=== PATIENT | female | born 1975 | race Caucasian/White ===

== ENCOUNTER 2022-08-24 11:17 | Emergency (ER) | payer SELFPAY ==
--- OUTSIDE RECORDS SUMMARY | 2022-08-24 11:20 | XMS REPORT | Continuity of Care Document ---
:1975 Author Organization [facility] t Address [address] [place] [address] Dr. Hernandze. [phone] Care Team Providers Name Role Phone PCP, PATIENT DOES NOT HAVE A Primary Care Physician Unavaila YRN Euceda Attending Clinician Yrn Suarez MD Attending Clinician Payers Payer Name Policy Type Policy Number Effective Date Expiration Date S ource Problems This patient has no known problems. Allergies, Adverse Reactions, Alerts Allergy Allergy Status Severity Reaction(s) Onset Inactive Treating Comm ents Source Name Type Date Date Clinician NO KNOWN Drug Active [facility] ALLERGIE [facility] Social History Social Habit Start Date Stop Date Quantity Comments Source Sex Assigned At [birth year] [facility] 00:00:00 00:00:00 [facility] Smoking Status Start Date Stop Date Source Unknown if ever smoked [facility] Medications This patient has no known medications. Procedures This patient has no known procedures. Encounters Start End Encounter Admission Attending Care Care Encounter Source Date/Time Date/Time Type Type Clinicians Facility Department ID 2021-12-20 2021-12-20 Emergency X JEVON PEREZ ERT [id number] [facility] 00:01:00 00:02:00 YRN [facility] 2021-12-20 2021-12-20 Emergency X CHRIS MSCOSME ERT [id number] [facility] 00:01:00 00:02:00 YRN [place] [facility] 2021-12-20 2021-12-20 Emergency [facility] [id number] [facility] 00:01:00 00:02:00 Yrn JEAN [id number] [facility] [id number] [facility] [id number] [place] [id number] Branch Results This patient has no known results.
[2022-08-24] MEDS ORDERED: HYDROCODONE/APAP 10/325 TAB ONE (12:48)
[2022-08-24] MEDS ORDERED: IBUPROFEN 400 MG TAB ONE (12:49)
--- NOTE | 2022-08-24 13:39 | RAD REPORT ---
EXAM DESCRIPTION: RAD - Knee Right 3 View - 08/24/2022 1:05 pm CLINICAL HISTORY: Right knee pain status post injury FINDINGS: Fracture involves the mid patella. Fracture fragments are 2 millimeters. Hemarthrosis. No dislocation
--- NOTE | 2022-08-24 14:14 | ER ---
Nurse's Notes [facility] Name: Coleen Scott Age: 47 yrs Sex: Female : 1975 Arrival Date: 08/24/2022 Time: 11:18 Bed 12 Private MD: Diagnosis: Fracture of patella Presentation: 08/24 12:24 Chief complaint: Patient states: tripped and fell onto right knee last night at 1800. kb3 C/O right knee pain and swelling. Coronavirus screen: Vaccine status: Patient reports being unvaccinated. Client denies travel out of the [place] in the last 14 days. Ebola Screen: Patient negative for fever greater than or equal to 101.5 degrees Fahrenheit, and additional compatible Ebola Virus Disease symptoms Patient denies exposure to infectious person. Patient denies travel to an Ebola-affected area in the 21 days before illness onset. Initial Sepsis Screen: Does the patient meet any 2 criteria? No. Patient's initial sepsis screen is negative. Does the patient have a suspected source of infection? No. Patient's initial sepsis screen is negative. Risk Assessment: Do you want to hurt yourself or someone else? Patient reports no desire to harm self or others. Onset of symptoms was August 23, 2022 at 18:00. 12:24 Method Of Arrival: Wheelchair kb3 12:24 Acuity: VIOLETA 4 kb3 Triage Assessment: 12:25 General: Appears in no apparent distress. uncomfortable, Behavior is calm, cooperative. kb3 Pain: Complains of pain in right knee Pain does not radiate. Pain currently is 10 out of 10 on a pain scale. Quality of pain is described as throbbing. 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 Last tetanus immunization: up to date. - Social history:: Smoking status: Patient reports the use of cigarette tobacco products, smokes one pack cigarettes per day. Vital Signs: 12:24 BP 137 / 87; Pulse 79; Resp 20; Temp 98.0; Pulse Ox 100% ; Weight 52.16 kg; Height 5 kb3 ft. 2 in. (157.48 cm); Pain 10/10; 12:24 Body Mass Index 21.03 (52.16 kg, 157.48 cm) kb3 ED Course: 11:18 Patient arrived in ED. rg4 11:18 Luciano Gooden PA is PHCP. m 11:18 Derek Morris MD is Attending Physician. jmm 12:25 Triage completed. kb3 12:25 Arm band placed on right wrist. Patient placed in an exam room, on a stretcher. kb3 12:33 ICE PACK. zm 12:43 Letha Mclain, RN is Primary Nurse. iw 13:07 Knee Right 3 View XRAY In Process Unspecified. EDMS 14:14 Elbert Escamilla MD is Referral Physician. jmm 14:14 Edis Carlton MD is Referral Physician. m Administered Medications: 12:54 Drug: [place] (HYDROcodone-acetaminophen) 10 mg-325 mg 1 tabs Route: PO; iw 13:50 Follow up: Response: No adverse reaction; Pain is decreased iw 12:54 Drug: Ibuprofen 800 mg Route: PO; iw 13:30 Follow up: Response: No adverse reaction iw Outcome: 14:13 Discharge ordered by . jmm 14:45 Patient left the ED. iw Signatures: Dispatcher [employer] EDMS Luciano Gooden PA PA Letha Rodrigues, RN ESTELA Pauly Orozco rg4 Genny Lorenzo Kelly, RN RN 3
--- NOTE | 2022-08-24 14:14 | EDPHYS ---
Physician Documentation [facility] Name: Coleen Scott Age: 47 yrs Sex: Female : 1975 Arrival Date: 08/24/2022 Time: 11:18 Bed 12 Private MD: ED Physician Derek Morris HPI: 08/24 14:10 This 47 yrs old Female presents to ER via Wheelchair with complaints of Knee Injury. [facility] 14:10 The patient presents with an injury, pain. Onset: The symptoms/episode began/occurred jmm acutely, just prior to arrival. Modifying factors: The symptoms are alleviated by nothing. the symptoms are aggravated by weight bearing. Is a 39-year-old female with no known chronic medical conditions presents emerged from with complaints of right knee pain and swelling after falling directly on the knee. Denies other injury.. 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 Last tetanus immunization: up to date. - Social history:: Smoking status: Patient reports the use of cigarette tobacco products, smokes one pack cigarettes per day. ROS: 14:10 Constitutional: Negative for fever, chills, and weight loss, Cardiovascular: Negative jmm for chest pain, palpitations, and edema, Respiratory: Negative for shortness of breath, cough, wheezing, and pleuritic chest pain. 14:10 MS/extremity: Positive for injury or acute deformity, pain. 14:10 All other systems are negative. Exam: 14:10 Constitutional: This is a well developed, well nourished patient who is awake, alert, jmm and in no acute distress. Head/Face: atraumatic. Eyes: EOMI, no conjunctival erythema appreciated ENT: Moist Mucus Membranes Neck: Trachea midline, Supple Chest/axilla: Normal chest wall appearance and motion. Cardiovascular: Regular rate and rhythm. No edema appreciated Respiratory: Normal respirations, no respiratory distress appreciated Abdomen/GI: Non distended Back: Normal ROM Skin: General appearance color normal 14:10 Musculoskeletal/extremity: Swelling noted to the right knee, full range of motion appreciated, compartments are soft, for dorsalis pedis pulse, neurovascular intact. 14:10 Skin: Appearance: Color: normal in color. 14:10 Neuro: Orientation: is normal, Mentation: is normal, Memory: is normal. 14:10 Psych: Behavior/mood is pleasant, cooperative. Vital Signs: 12:24 BP 137 / 87; Pulse 79; Resp 20; Temp 98.0; Pulse Ox 100% ; Weight 52.16 kg; Height 5 kb3 ft. 2 in. (157.48 cm); Pain 10; 12:24 Body Mass Index 21.03 (52.16 kg, 157.48 cm) kb3 Procedures: 14:10 Splinting: Splint applied to right leg using knee immobilizer, applied by techBee zamudio Examined by me, post splint application: neurovascular intact, 2+ distal pulses palpable, brisk capillary refill noted, Patient tolerated. MDM: 11:53 Patient medically screened. [facility] 14:10 Data reviewed: vital signs, nurses notes. Counseling: I had a detailed discussion with robb the patient and/or guardian regarding: the historical points, exam findings, and any diagnostic results supporting the discharge/admit diagnosis, radiology results, the need for outpatient follow up, to return to the emergency department if symptoms worsen or persist or if there are any questions or concerns that arise at home. 08/24 12:12 Order name: Knee Right 3 View XRAY; Complete Time: 13:45 [facility] 08/24 12:12 Order name: Ice pack; Complete Time: 12:33 [facility] 08/24 13:27 Order name: Knee Immobilizer; Complete Time: 13:35 [facility] Administered Medications: 12:54 Drug: [place] (HYDROcodone-acetaminophen) 10 mg-325 mg 1 tabs Route: PO; iw 13:50 Follow up: Response: No adverse reaction; Pain is decreased iw 12:54 Drug: Ibuprofen 800 mg Route: PO; iw 13:30 Follow up: Response: No adverse reaction iw Disposition: 08/25 08:08 Co-signature as Attending Physician, Derek Morris MD I agree with the assessment and [facility] plan of care. Disposition Summary: 08/24/22 14:13 Discharge Ordered Location: Home [facility] Condition: Stable [facility] Diagnosis - Fracture of patella [facility] Followup: [facility] - With: Private Physician - When: 2 - 3 days - Reason: Recheck today's complaints, Continuance of care, Re-evaluation by your physician Followup: [facility] - With: Elbert Escamilla MD - When: 2 - 3 days - Reason: Recheck today's complaints, Continuance of care, Re-evaluation by your physician Followup: [facility] - With: Edis Carlton MD - When: 2 - 3 days - Reason: Recheck today's complaints, Continuance of care, Re-evaluation by your physician Discharge Instructions: - Discharge Summary Sheet [facility] - Patellar Fracture, Adult [facility] Forms: - Medication Reconciliation Form [facility] - Thank You Letter [facility] - Antibiotic Education [facility] - Prescription Opioid Use [facility] Prescriptions: - Tylenol-Codeine #3 300 mg-30 mg Oral - take 1 tablet by ORAL route every 4-6 hours As needed; 20 tablet; Refills: 0, [facility] Product Selection Permitted Signatures: Dispatcher [employer] Derek Finnegan MD MD cha Mickail, Joel, PA PA Letha Rodrigues, RN RN iw Anna Maher RN RN kb3
[2022-08-24 15:10] VITALS: BP 137/87; TEMP 98; O2SAT 100
== END 2022-08-24 14:45 | disposition home or self-care (01) ==
LOC: ER 11:17
DX: S82.001A Unspecified fracture of right patella, initial encounter for closed fracture (principal); F17.210 Nicotine dependence, cigarettes, uncomplicated
CPT/HCPCS: 99283